=== PATIENT | male | born 1995 | race Caucasian/White ===

== ENCOUNTER 2020-12-15 02:11 | Day surgery (SDC) | payer MEDICARE, MEDICAID ==
[2020-12-15] MEDS ORDERED: Sodium Chloride 0.9% 10 ML Syringe FLUSH PRN ×2 (02:45→03:21)
[2020-12-15] MEDS ORDERED: Sodium Chloride 0.9% 1,000 ML IV STA (02:45)
[2020-12-15] MEDS ORDERED: fentaNYL 100 MCG/2 ML SDV IVPUSH ONE ×3 (02:47→09:43)
[2020-12-15] MEDS ORDERED: Ondansetron 4 MG/2 ML SDV IVPUSH ONE (02:47)
--- NOTE | 2020-12-15 02:49 | EDM.PDOC ---
ED HPI GENERAL MEDICAL PROBLEM - General Chief Complaint: Abdominal Pain Stated Complaint: STOMACH PAINS Time Seen by Provider: 12/15/20 02:37 Source of Information: Reports: Patient, Family, RN Notes Reviewed History Limitations: Reports: No Limitations - History of Present Illness INITIAL COMMENTS - FREE TEXT/NARRATIVE: 25-year-old gentleman presents emergency department today complaint of abdominal pain, he states that the abdominal pain for little over 24 hours he has had to bloody stools mainly blood is noticed when he wipes, no history of abdominal surgeries he does get nauseated with the pain Abdomen Pain Score (Numeric/FACES): 7 - Related Data Allergies Allergy/AdvReac Type Severity Reaction Status Date / Time No Known Allergies Allergy Verified 12/15/20 02:22 Home Meds: Home Meds NK [No Known Home Meds] 12/15/20 [History] Past Medical History HEENT History: Reports: Impaired Vision Psychiatric History: Reports: Psych Hospitalization(s) - Infectious Disease History Infectious Disease History: Reports: Chicken Pox - Past Surgical History HEENT Surgical History: Reports: Tonsillectomy Social & Family History - Family History Family Medical History: No Pertinent Family History - Tobacco Use Tobacco Use Status *Q: Current Every Day Tobacco User Years of Tobacco use: 12 Packs/Tins Daily: 0.5 - Caffeine Use Caffeine Use: Reports: Energy Drinks - Recreational Drug Use Recreational Drug Use: No ED ROS GENERAL - Review of Systems Review Of Systems: See Below Constitutional: Denies: Fever, Chills HEENT: Reports: No Symptoms Respiratory: Reports: No Symptoms Cardiovascular: Reports: No Symptoms GI/Abdominal: Reports: Abdominal Pain, Bloody Stool, Nausea, Vomiting : Reports: No Symptoms ED EXAM, GI/ABD - Physical Exam Exam: See Below Exam Limited By: No Limitations General Appearance: Alert, WD/WN, No Apparent Distress Respiratory/Chest: No Respiratory Distress, Lungs Clear, Normal Breath Sounds, No Accessory Muscle Use, Chest Non-Tender Cardiovascular: Regular Rate, Rhythm, No Murmur GI/Abdominal Exam: Normal Bowel Sounds, Soft, No Distention, Guarding, Tender (Right lower quadrant) Rectal (Males) Exam: Normal Exam, Normal Rectal Tone, Other (Tenderness with separation of the gluteal folds will not tolerate a rectal exam) Back Exam: Normal Inspection, Full Range of Motion, NT Course - Vital Signs Last Recorded V/S: Last Vital Signs Temp 98.1 F 12/15/20 05:49 Pulse 71 12/15/20 05:49 Resp 16 12/15/20 05:49 BP 102/43 L 12/15/20 05:49 Pulse Ox 99 12/15/20 05:49 - Orders/Labs/Meds Orders: Active Orders 24 hr Category Date Time Status Peripheral IV Care [RC] . DIRECTED Care 12/15/20 02:46 Active COVID-19/FLU A+B/RSV [MOLEC] Stat Lab 12/15/20 06:01 Received UA W/MICROSCOPIC [URIN] Urgent Lab 12/15/20 02:45 Ordered Ampicillin/Sulbactam Na [Unasyn] 3 gm Med 12/15/20 06:34 Ordered Sodium Chloride 0.9% [Normal Saline] 100 ml IV ONETIME Sodium Chloride 0.9% [Normal Saline] 1,000 ml Med 12/15/20 05:45 Active IV ASDIRECTED Sodium Chloride 0.9% [Saline Flush] Med 12/15/20 02:45 Active 10 ml FLUSH ASDIRECTED PRN Sodium Chloride 0.9% [Saline Flush] Med 12/15/20 03:21 Active 10 ml FLUSH ONETIME PRN fentaNYL [Sublimaze] Med 12/15/20 06:36 Once 50 mcg IVPUSH ONETIME ONE Peripheral IV Insertion Adult [OM.PC] Urgent Oth 12/15/20 02:45 Ordered Medication Orders Fentanyl (Fentanyl 100 Mcg/2 Ml Sdv) 50 mcg IVPUSH ONETIME ONE Stop: 12/15/20 06:37 Sodium Chloride (Normal Saline) 1,000 mls @ 125 mls/hr IV ASDIRECTED RICHARD Last Admin: 12/15/20 05:48 Dose: 125 mls/hr Documented by: AYSE Ampicillin Sodium/Sulbactam (Sodium 3 gm/ Sodium Chloride) 100 mls @ 200 mls/hr IV ONETIME ONE Stop: 12/15/20 07:03 Sodium Chloride (Sodium Chloride 0.9% 10 Ml Syringe) 10 ml FLUSH ASDIRECTED PRN PRN Reason: Keep Vein Open Last Admin: 12/15/20 03:03 Dose: 10 ml Documented by: AYSE Sodium Chloride (Sodium Chloride 0.9% 10 Ml Syringe) 10 ml FLUSH ONETIME PRN PRN Reason: PER RADIOLOGY PROTOCOL Last Admin: 12/15/20 03:39 Dose: 10 ml Documented by: KAREN Labs: Laboratory Tests 12/15/20 12/15/20 12/15/20 Range/Units 03:01 03:01 03:01 WBC 13.6 H (4.5-11.0) K/uL RBC 4.82 (4.30-5.90) M/uL Hgb 15.1 H (12.0-15.0) g/dL Hct 43.2 (40.0-54.0) % MCV 90 (80-98) fL MCH 31 (27-31) pg MCHC 35 (32-36) % Plt Count 273 (150-400) K/uL Neut % (Auto) 67 H (36-66) % Lymph % (Auto) 23 L (24-44) % [place] % (Auto) 8 H (2-6) % Eos % (Auto) 2 (2-4) % Baso % (Auto) 0 (0-1) % Sodium 145 (140-148) mmol/L Potassium 3.7 (3.6-5.2) mmol/L Chloride 106 (100-108) mmol/L Carbon Dioxide 23 (21-32) mmol/L Anion Gap 16.3 H (5.0-14.0) mmol/L BUN 10 (7-18) mg/dL Creatinine 1.1 (0.8-1.3) mg/dL Est Cr Clr Drug Dosing 102.66 mL/min Estimated GFR (MDRD) > 60 (>60) Glucose 101 (74-106) mg/dL Lactic Acid 1.0 (0.4-2.0) mmol/L Calcium 9.0 (8.5-10.1) mg/dL Total Bilirubin 0.5 (0.2-1.0) mg/dL AST 18 (15-37) U/L ALT 25 (12-78) U/L Alkaline Phosphatase 72 (46-116) U/L Total Protein 6.8 (6.4-8.2) g/dL Albumin 4.1 (3.4-5.0) g/dL Globulin 2.7 (2.3-3.5) g/dL Albumin/Globulin Ratio 1.5 (1.2-2.2) Lipase 71 L (73-393) U/L Meds: Medications Generic Name Dose Route Start Last Admin Trade Name Eitanq PRN Reason Stop Dose Admin Fentanyl 50 mcg 12/15/20 06:36 Fentanyl 100 Mcg/2 Ml Sdv IVPUSH 12/15/20 06:37 ONETIME ONE Sodium Chloride 1,000 mls @ 125 mls/hr 12/15/20 05:45 12/15/20 05:48 Normal Saline IV 125 mls/hr ASDIRECTED RICHARD Administration Ampicillin Sodium/Sulbactam 100 mls @ 200 mls/hr 12/15/20 06:34 Sodium 3 gm/ Sodium Chloride IV 12/15/20 07:03 ONETIME ONE Sodium Chloride 10 ml 12/15/20 02:45 12/15/20 03:03 Sodium Chloride 0.9% 10 Ml Syringe FLUSH 10 ml ASDIRECTED PRN Administration Keep Vein Open Sodium Chloride 10 ml 12/15/20 03:21 12/15/20 03:39 Sodium Chloride 0.9% 10 Ml Syringe FLUSH 10 ml ONETIME PRN Administration PER RADIOLOGY PROTOCOL Discontinued Medications Generic Name Dose Route Start Last Admin Trade Name Eitanq PRN Reason Stop Dose Admin Fentanyl 50 mcg 12/15/20 02:47 12/15/20 03:03 Fentanyl 100 Mcg/2 Ml Sdv IVPUSH 12/15/20 02:48 50 mcg ONETIME ONE Administration Sodium Chloride 1,000 mls @ 500 mls/hr 12/15/20 02:45 12/15/20 03:39 Normal Saline IV 12/15/20 04:44 500 mls/hr .BOLUS STA Administration Sodium Chloride 73 mls @ 3 mls/sec 12/15/20 03:21 12/15/20 03:39 Normal Saline IV 12/15/20 03:22 3 mls/sec ONETIME ONE Administration Iopamidol 100 ml 12/15/20 03:21 12/15/20 03:39 Iopamidol 612 Mg/Ml 100 Ml Bottle IV 100 ml . DIRECTED PRN Administration RADIOLOGY EXAM Ondansetron HCl 4 mg 12/15/20 02:47 12/15/20 03:03 Ondansetron 4 Mg/2 Ml Sdv IVPUSH 12/15/20 02:48 4 mg ONETIME ONE Administration Departure - Departure Time of Disposition: 06:38 Disposition: Admitted As Inpatient 66 Condition: Fair Clinical Impression: Appendicitis Qualifiers: Appendicitis type: acute appendicitis Acute appendicitis type: with localized peritonitis Appendicitis gangrene presence: unspecified whether gangrene present Appendicitis perforation presence: unspecified whether perforation present Appendicitis abscess presence: unspecified whether abscess present Qualified Code(s): K35.30 - Acute appendicitis with localized peritonitis, without perforation or gangrene - Discharge Information Instructions: Appendicitis, Adult Referrals: PCP,None [Primary Care Provider] - Forms: ED Department Discharge Sepsis Event Note (ED) - Evaluation Sepsis Screening Result: No Definite Risk - Focused Exam Vital Signs: Vital Signs Temp Pulse Resp BP Pulse Ox 12/15/20 05:49 98.1 F 71 16 102/43 L 99 12/15/20 02:26 98.0 F 72 16 125/71 97 - My Orders Last 24 Hours: My Active Orders 12/15/20 02:45 UA W/MICROSCOPIC [URIN] Urgent Sodium Chloride 0.9% [Saline Flush] 10 ml FLUSH ASDIRECTED PRN Peripheral IV Insertion Adult [OM.PC] Urgent 12/15/20 02:46 Peripheral IV Care [RC] . DIRECTED 12/15/20 03:21 Sodium Chloride 0.9% [Saline Flush] 10 ml FLUSH ONETIME PRN 12/15/20 05:45 Sodium Chloride 0.9% [Normal Saline] 1,000 ml IV ASDIRECTED 12/15/20 06:01 COVID-19/FLU A+B/RSV [MOLEC] Stat 12/15/20 06:34 Ampicillin/Sulbactam Na [Unasyn] 3 gm Sodium Chloride 0.9% [Normal Saline] 100 ml IV ONETIME 12/15/20 06:36 fentaNYL [Sublimaze] 50 mcg IVPUSH ONETIME ONE - Assessment/Plan Last 24 Hours: My Active Orders 12/15/20 02:45 UA W/MICROSCOPIC [URIN] Urgent Sodium Chloride 0.9% [Saline Flush] 10 ml FLUSH ASDIRECTED PRN Peripheral IV Insertion Adult [OM.PC] Urgent 12/15/20 02:46 Peripheral IV Care [RC] . DIRECTED 12/15/20 03:21 Sodium Chloride 0.9% [Saline Flush] 10 ml FLUSH ONETIME PRN 12/15/20 05:45 Sodium Chloride 0.9% [Normal Saline] 1,000 ml IV ASDIRECTED 12/15/20 06:01 COVID-19/FLU A+B/RSV [MOLEC] Stat 12/15/20 06:34 Ampicillin/Sulbactam Na [Unasyn] 3 gm Sodium Chloride 0.9% [Normal Saline] 100 ml IV ONETIME 12/15/20 06:36 fentaNYL [Sublimaze] 50 mcg IVPUSH ONETIME ONE Plan: Assessment Acuity = acute Site and laterality = appendicitis early Etiology = unknown Manifestations = none Location of injury = Home Lab values = WBC elevated 13.6 consistent leukocytosis, CMP unremarkable CT scan describes early appendicitis Covid is pending Plan Call discussed case with Dr. Macdonald at 630 kindly agreed to come evaluate patient emergency department for admission ordered 3 g Unasyn IV This note was dictated using [employer] voice recognition software please call with any questions on syntax or grammar.
[2020-12-15] MEDS ORDERED: Iopamidol 612 MG/ML 100 ML Bottle IV PRN (03:21)
--- NOTE | 2020-12-15 03:58 | CRLCT ---
INDICATION: Right lower quadrant pain, bloody stools TECHNIQUE: CT abdomen and pelvis acquired with 100 cc Isovue-300 IV contrast. COMPARISON: None FINDINGS: Lower chest: Unremarkable. Liver: 1.3 cm hypodense lesion with some nodular enhancement at the hepatic dome. Spleen: Unremarkable. Pancreas: Unremarkable. Gallbladder and bile ducts: Unremarkable. Adrenal glands: Unremarkable. Kidneys: Unremarkable. GI tract: The appendix measures 7.8 mm in diameter. There is no periappendiceal fat stranding. No appendicolith. The terminal ileum is normal. The colon is normal in appearance. Vascular structures: Unremarkable. Lymph nodes: Unremarkable. Miscellaneous: Unremarkable. No free air or significant free fluid. Pelvic Organs: Significant distention of the urinary bladder. Bones: Unremarkable for age. IMPRESSION: Dilated appendix. No periappendiceal fat stranding. Early acute appendicitis cannot be excluded. Likely small hemangioma in the liver. Significant distension of the urinary bladder. Findings discussed with Officer at 3:55 a.m. on December 15, 2020. Please note that all CT scans at this facility use dose modulation, iterative reconstruction, and/or weight-based dosing when appropriate to reduce radiation dose to as low as reasonably achievable. Dictated by Sarita Medellin MD @ 12/15/2020 3:57:[address] Sarita Medellin @ Dec 15 2020 3:57AM
[2020-12-15] MEDS ORDERED: Sodium Chloride 0.9% 1,000 ML IV SCH ×2 (05:45→07:30)
[2020-12-15] MEDS ORDERED: Ampicillin/Sulbactam Na 3 GM in Sodium Chloride 0.9% 100 ML IV ONE (06:34)
[2020-12-15 06:49] LABS: CORONAVIRUS COVID-19 NAA NEGATIVE (NEGATIVE)
[2020-12-15] MEDS ORDERED: Bupivacaine 0.5%/EPINEPHrine 1:200,000 50 ML MDV ONE (06:50)
[2020-12-15] MEDS ORDERED: Ropivacaine 35 ML, dexAMETHasone 8 MG, EPINEPHrine 0.4 MG, Sodium Chloride 0.9% 42.6 ML NERVRT SCH ×4 (08:00)
[2020-12-15] MEDS ORDERED: Rocuronium 50 MG/5 ML Vial ONE (08:21)
[2020-12-15] MEDS ORDERED: Ondansetron 4 MG/2 ML SDV ONE (08:21)
[2020-12-15] MEDS ORDERED: Propofol 200 MG/20 ML SDV ONE (08:21)
[2020-12-15] MEDS ORDERED: Dexamethasone 4 MG/ML SDV ONE (08:21)
[2020-12-15] MEDS ORDERED: Succinylcholine 200 MG/10 ML MDV ONE (08:21)
[2020-12-15] MEDS ORDERED: fentaNYL 250 MCG/5 ML SDV ONE (08:21)
[2020-12-15] MEDS ORDERED: Glycopyrrolate 0.2 MG/ML 5 ML MDV ONE (08:21)
[2020-12-15] MEDS ORDERED: Neostigmine Methylsulfate 1 MG/ML 5 ML Syringe ONE (08:21)
[2020-12-15] MEDS ORDERED: Lactated Ringers 1,000 ML ONE (09:10)
[2020-12-15] MEDS ORDERED: Ketorolac 60 MG/2 ML SDV ONE (09:32)
[2020-12-15] MEDS ORDERED: HYDROmorphone 1 MG/ML Syringe IV PRN (10:40)
[2020-12-15] MEDS ORDERED: HYDROmorphone 0.5 MG/0.5 ML Syringe IVPUSH PRN (10:40)
[2020-12-15] MEDS ORDERED: Cyclobenzaprine 10 MG Tab PO PRN (10:41)
[2020-12-15] MEDS ORDERED: Ondansetron 4 MG/2 ML SDV IVPUSH PRN (10:41)
[2020-12-15] MEDS ORDERED: hydrOXYzine HCL 100 MG/2 ML SDV IM PRN (10:42)
[2020-12-15] MEDS: oxyCODONE 5 MG Tab PO PRN ×3 (10:50→20:35)
[2020-12-15] MEDS: Acetaminophen 1,000 MG in Premix Bag 1 BAG IV SCH ×3 (11:39→23:13)
[2020-12-15] MEDS: Docusate Sodium 100 MG Cap PO SCH ×2 (11:40→20:37)
[2020-12-15] MEDS: Ampicillin/Sulbactam Na 3 GM in Sodium Chloride 0.9% 100 ML IV SCH ×3 (13:13→23:41)
[2020-12-15] MEDS: Dextrose 5%-Lactated Ringers 1,000 ML IV SCH (18:20)
[2020-12-16] MEDS: Dextrose 5%-Lactated Ringers 1,000 ML IV SCH (02:17)
[2020-12-16] MEDS: Acetaminophen 1,000 MG in Premix Bag 1 BAG IV SCH (05:18)
[2020-12-16] MEDS: Ampicillin/Sulbactam Na 3 GM in Sodium Chloride 0.9% 100 ML IV SCH (05:35)
[2020-12-16] MEDS ORDERED: Amoxicillin/Clavulanate K 875-125 MG Tab PO SCH (08:00)
[2020-12-16] MEDS: Docusate Sodium 100 MG Cap PO SCH (09:51)
--- NOTE | 2020-12-16 10:22 | DISCH ---
ADMISSION DIAGNOSES: 1. Abdominal pain. 2. Acute appendicitis. DISCHARGE DIAGNOSES: Diagnostic laparoscopy with laparoscopic appendectomy and drainage of periappendiceal abscess. Date of procedure: 12/15/2020. Surgeon: Kaushik Macdonald MD. HISTORY: Ana Granger is a 25-year-old male who presented to the emergency department at [facility] with abdominal pain. After preoperative evaluation and discussion of possible risks and possible complications, he wished to proceed with surgical procedure. HOSPITAL COURSE: Ana had his surgery on 12/15/2020. He had no operative complications. On postoperative day #1, he was able to be discharged to home. Vital signs stable. He was afebrile. He received Unasyn IV while in the hospital, and oral intake 2650. Urine output 3800. PHYSICAL EXAMINATION: GENERAL: Ana Granger is a 25-year-old male, height is 5 feet 9 inches, and weight is 158 pounds. VITAL SIGNS: TPR is 98.5, 70, 18, and blood pressure 114/62. HEENT: Negative. NECK: Supple. HEART: Regular rate and rhythm. LUNGS: Clear. ABDOMEN: Dressings dry and intact. Abdominal binder is on. EXTREMITIES: Without peripheral edema. DISPOSITION: Discharged to home. CONDITION: Stable and improving. FOLLOWUP APPOINTMENTS: Cammy Ibanez PA-C, 12/23/2020 at 9:00 a.m. DISCHARGE MEDICATIONS: Home medications: 1. Augmentin 875 mg p.o. b.i.d. q.12 hours for five days, #10 given. 2. Colace 100 mg p.o. b.i.d., #60. 3. Tylenol 500 mg p.o. q.6 hours p.r.n. pain, #100. DIET: Usual diet as tolerated. Drink 8 to 10 glasses of water a day. ACTIVITY: No lifting greater than 10 pounds for 2 weeks. Other activity: Walk 6 times daily inside your home. Driving: Do not drive for 1 week. Shower/bathing: May shower keep wound incision care. Keep operative site clean and dry. Wear abdominal binder for 2 weeks and then as tolerated. Notify provider if any fever, increased pain, swelling, redness, drainage, nausea, or vomiting. SPECIAL INSTRUCTION: Use incentive spirometer 10 times every hour while awake for a week. /[id number]
--- NOTE | 2020-12-29 13:57 | OR ---
DATE OF PROCEDURE: 12/15/2020 SURGEON: Kaushik Macdonald MD PREOPERATIVE DIAGNOSIS: Acute appendicitis. POSTOPERATIVE DIAGNOSES: Acute perforated appendicitis with periappendiceal abscess. OPERATIVE PROCEDURE: Diagnostic laparoscopy with laparoscopic appendectomy and drainage of periappendiceal abscess ([id number]). ANESTHESIA: General. INDICATIONS FOR PROCEDURE: This is a 25-year-old male presenting with a picture of an acute appendicitis clinically and radiologically. Plan is to proceed with diagnostic laparoscopy, laparotomy if necessary, and appendectomy. Other procedures as indicated will possibly be performed depending on operative findings. Potential risks of procedure including bleeding, infection, leaks from GI tract closures such as the appendectomy site were reviewed, and the patient wishes to proceed. DETAILS OF PROCEDURE: The patient was taken to the operating room and placed in a supine position. After general endotracheal anesthesia was induced, a Moore catheter was inserted, and the abdomen prepped and draped. Three fingerbreadths superior and to the left of the umbilicus, a transverse incision was made and peritoneal cavity entered under direct vision with an Optiview trocar. The peritoneal cavity was inflated to 15 mmHg pressure with CO2. Trocars were then placed in the right upper quadrant and left lower quadrant and the lower abdomen examined. The patient was noted to have some purulence around the base of the cecum. This was evacuated. Appendix was then identified and mobilized upwards. This obviously involved an appendicitis with some probable perforation at location in the proximal appendix. The mesoappendix was then divided with Harmonic scalpel, and the appendix then divided flush with the cecum with a YOSI purple load. The appendix was then placed in a specimen bag and retrieved through the left lower quadrant trocar site. Cultures of the periappendiceal fluid were obtained. At that point, no further problems were noted. Some fibrin sealant was then placed across the appendectomy stump and mesenteric division line, and the trocars were then sequentially removed. Bilateral transversus abdominis plane blocks had been placed, and the fascia at each trocar site was closed with 0 Vicryl stitch and the skin with 4-0 Vicryl skin stitch. Dressing was applied, and the patient was taken to the recovery room in satisfactory condition. There were no evident complications. Kaushik Macdonald MD /[id number]
== END 2020-12-16 11:00 | disposition home or self-care (01) ==
LOC: JP.ED 02:11 → JP.SDS 06:52 → JP.MS 09:30 → JP.SDS 12-16 11:00
PROVIDERS: ATTEND Surgery
DX: K35.30 Acute appendicitis with localized peritonitis, without perforation or gangrene (principal); F17.210 Nicotine dependence, cigarettes, uncomplicated; Z01.812 Encounter for preprocedural laboratory examination; Z20.822 Contact with and (suspected) exposure to COVID-19
CPT/HCPCS: 0241U; 36415; 74177; 80053; 83605; 83690; 85025; 87070; 87075; 87077; 87186; 87205; 88304; 94762; 96374; 96375; 96376; 99284; 99285-25; A9270-GY; J0131; J0171; J0295; J0330; J1100; J1885; J2405; J2704; J2710; J2795; J3010; J3490; J7030; J7120; J7121; Q9967